=== PATIENT | female | born 1945 | race American Indian/Alaskan Native ===

== ENCOUNTER 2016-08-01 10:20 | Outpatient (CLI) | payer MEDICARE, OTHER | END 2016-08-01 10:21 | disposition home or self-care (01) | DX: Z12.31 Encounter for screening mammogram for malignant neoplasm of breast (principal) ==

== ENCOUNTER 2017-08-01 10:30 | Outpatient (CLI) | payer MEDICARE, OTHER ==
--- NOTE | 2017-08-02 13:52 | Mammography Report ---
DATE OF SERVICE: 08/01/2017 DIGITAL BILATERAL SCREENING MAMMOGRAM: 08/01/2017 COMPARISON: Mammogram 08/01/2016. INDICATION: Screening mammography. TECHNIQUE: Bilateral MLO and CC breast views. FINDINGS: There are scattered fibroglandular densities. No dominant mass architectural distortion or concerning cluster of microcalcifications seen. IMPRESSION: BIRADS CATEGORY 1-NEGATIVE. RECOMMENDATION: ANNUAL SCREENING MAMMOGRAM. STANDARD QUALIFYING STATEMENTS: 1. This examination was reviewed with the aid of Computer-Aided Detection (CAD) . 2. A negative or benign imaging report should not delay biopsy if clinically suspicious findings are present. Consider surgical consultation if warranted. More than 5% of cancers are not identified by imaging. 3. Dense breasts may obscure an underlying neoplasm. TD: 08/02/2017 14:50 JACI
== END 2017-08-01 10:31 | disposition home or self-care (01) ==
LOC: DI.S 10:30
PROVIDERS: ATTEND Internal Medicine
DX: Z12.31 Encounter for screening mammogram for malignant neoplasm of breast (principal)
CPT/HCPCS: 77067

== ENCOUNTER 2017-08-05 09:54 | Outpatient (CLI) | payer MEDICARE, OTHER ==
--- NOTE | 2017-08-05 13:19 | CARDIAC PROCEDURE NOTE ---
DATE OF SERVICE: 08/05/2017 Physician: Shyann Archer MD DATE OF PROCEDURE: 08/05/2017 PROCEDURE: Exercise Cardiolite test. FINDINGS: HEART RATE RESPONSE: Resting 91 to maximum 181, which was beyond the target of 126. BLOOD PRESSURE RESPONSE: 136/64 resting to maximum 170/64. ST SEGMENT RESPONSE: No significant ST segment elevations or depressions, arrhythmias, PVCs detected. SYMPTOMS: No chest discomfort. EXAM CHANGES: None. REASON FOR STOPPING TEST: Dyspnea and patient had completed the required 1 minute exercise time after Cardiolite injections. IMPRESSION: No symptoms, no significant EKG changes. CONCLUSIONS: Await imaging studies. TD: 08/05/2017 14:18
--- NOTE | 2017-08-05 15:32 | Nuclear Medicine Report ---
EXAM: SINGLE-ISOTOPE EXERCISE STRESS TEST. SINGLE-ISOTOPE AND ONE-DAY REST/STRESS MYOCARDIAL PERFUSION SCAN S WITH TOMOGRAPHIC IMAGING, QUANTITATIVE ANALYSIS, WALL MOTION ANALYSIS AND CALCULATION OF EJECTION F RACTION. EXAM DATE: 08/05/2017 02:54 PM. CLINICAL HISTORY: DYSPNEA, CHEST PAIN. COMPARISON: None. TECHNIQUE: A rest myocardial perfusion scan was done with tomography after the intravenous administration of 11. 3 mCi Tc-99m sestamibi. After an appropriate delay, a treadmill exercise stress was performed according to department orlyo l. The patient exercised for 7 minutes and 0 seconds. The maximum heart rate was 181 bpm, which was 1 21% of the maximum predicted heart rate of 149 bpm. At approximately peak heart rate, 41.8 mCi of Tc- 99m sestamibi was injected for stress myocardial perfusion scan. Motion correction was applied when a ppropriate. Gated tomographic images were obtained for wall motion analysis and computation of left ventricular e jection fraction. FINDINGS: Stress perfusion images demonstrate no convincing fixed or reversible perfusion defects. No other convincing perfusion abnormalities. No convincing evidence of transient ischemic dilatation. Wall motion analysis demonstrates no focal wall motion abnormalities The left ventricular end-diastolic volume is 69 cc. The left ventricular end-systolic volume is 17 cc . The left ventricular ejection fraction is calculated to be 75%. IMPRESSION: 1. No scintigraphic findings to indicate myocardial ischemia. Negative for infarct. 2. Normal left ventricular ejection fraction of 75%. 3. Normal segmental and global wall motion. 4. Normal left ventricular cavity size, no change with stress. [facility] Referring Provider Line: [phone] SITE ID: [id number]
[2017-08-07 13:46] VITALS: BP 136/64
== END 2017-08-05 09:55 | disposition home or self-care (01) ==
LOC: DI 09:54
PROVIDERS: ATTEND Internal Medicine
DX: R06.00 Dyspnea, unspecified (principal); R07.9 Chest pain, unspecified
CPT/HCPCS: 78452; 93017; A9500

== ENCOUNTER 2018-08-22 10:17 | Outpatient (CLI) | payer MEDICARE, OTHER ==
--- NOTE | 2018-08-22 13:48 | XRAY Report ---
Reason: COUGH Procedure Date: 08/22/2018 Accession Number: [id number] / [id number] Procedure: XR - Chest 2 View X-Ray CPT Code: 96193 FULL RESULT: EXAM: CHEST RADIOGRAPHY EXAM DATE: 08/22/2018 10:29 AM. CLINICAL HISTORY: Cough. COMPARISON: 09/06/2014 2:46 PM. TECHNIQUE: 2 views. FINDINGS: Lungs/Pleura: No focal opacities evident. No pleural effusion. No pneumothorax. Normal volumes. Mediastinum: Redemonstration of calcifications of the aortic arch. Normal cardiac silhouette for size. Other: None. IMPRESSION: No acute cardiopulmonary abnormality. [facility]
== END 2018-08-22 10:18 | disposition home or self-care (01) ==
LOC: DI 10:17
PROVIDERS: ATTEND Internal Medicine
DX: R05 Cough (principal)
CPT/HCPCS: 71046

== ENCOUNTER 2018-09-15 10:34 | Emergency (ER) | payer MEDICARE, OTHER ==
[2018-09-15 11:45] LABS: BASOPHILS % (AUTO) 0.2 %; EOSINOPHILS # (AUTO) 0.1 10^3/uL (0.0-0.7); EOSINOPHILS % (AUTO) 0.7 %; HGB - HEMOGLOBIN 12.1 g/dL (12.0-16.0); LYMPHOCYTES # (AUTO) 2.6 10^3/uL (1.5-3.5); LYMPHOCYTES % (AUTO) 26.1 %; MEAN CORPUSCULAR HEMOGLOBIN 30.1 pg (27.0-31.0); MEAN CORPUSCULAR HGB CONC 33.8 g/dL (32.0-36.0); MEAN CORPUSCULAR VOLUME 89.2 fL (81.0-99.0); MEAN PLATELET VOLUME 7.9 fL (7.9-10.8); MONOCYTES # (AUTO) 0.7 10^3/uL (0.0-1.0); MONOCYTES % (AUTO) 6.9 %; NEUTROPHILS # (AUTO) 6.6 10^3/uL (1.5-6.6); NEUTROPHILS % (AUTO) 66.1 %; PLT - PLATELET COUNT 238 10^3/uL (130-450); RED BLOOD COUNT 4.02 10^6/uL (4.20-5.40); RED CELL DISTRIBUTION WIDTH 12.7 % (12.0-15.0); WHITE BLOOD COUNT 9.9 x10^3/uL (4.8-10.8)
[2018-09-15 11:54] LABS: ALBUMIN 4.1 g/dL (3.2-5.5); ALBUMIN/GLOBULIN RATIO 1.2 (1.0-2.2); BILIRUBIN,TOTAL 0.4 mg/dL (0.2-1.0); CALCIUM 9.3 mg/dL (8.5-10.3); CREATININE 1.1 mg/dL (0.4-1.0); TOTAL PROTEIN 7.4 g/dL (6.7-8.2)
[2018-09-15 12:04] LABS: BILIRUBIN,URINE NEGATIVE (NEGATIVE); GLUCOSE, URINE (UA) NEGATIVE (NEGATIVE); KETONES,URINE (UA) NEGATIVE (NEGATIVE); LEUKOCYTE ESTERASE, URINE NEGATIVE (NEGATIVE); NITRITE,URINE NEGATIVE (NEGATIVE); OCCULT BLOOD,URINE NEGATIVE (NEGATIVE); PROTEIN,URINE NEGATIVE (NEGATIVE); UROBILINOGEN,URINE 0.2 (NORMAL) E.U./dL (NORMAL)
[2018-09-15 12:08] LABS: CLARITY,URINE CLEAR (CLEAR)
[2018-09-15] MEDS ORDERED: ONDANSETRON 4 MG/2 ML VIAL IVP STA (12:33)
[2018-09-15] MEDS ORDERED: MECLIZINE 12.5 MG TABLET PO STA (12:33)
--- NOTE | 2018-09-15 12:37 | ED Physician Documentation ---
PD HPI FOCAL NEURO - Stated complaint Stated Complaint: DIZZY/NAUSEA - Chief complaint Chief Complaint: Heent - History obtained from History obtained from: Patient - History of Present Illness Timing - onset: Other (Over the last 2 days she has had waxing and waning vertigo feeling like the room is spinning especially to the right. It generally happens at night. She does not know if it is related to turning over or turning her head, as she is been woken up by it. There is no associated headache, weakness, numbness, tingling. She does have a upper respiratory infection is being treated for bronchitis and is on steroids. She has had vertigo before related to an ear perforation but that was decades ago. At this point she does not have not vertigo but she feels a little car sick and nauseous. 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 - Present Medications Home Medications: Ambulatory Orders Medication Instructions Recorded Confirmed Bupropion HCl [Wellbutrin] 300 mg PO DAILY 01/01/13 08/14/17 Omeprazole [Prilosec] 20 mg PO BID 01/01/13 08/14/17 Albuterol Sulfate [Albuterol 1 inh INH DAILY 09/06/14 08/14/17 Sulfate Hfa] Pravastatin Sodium 40 mg PO DAILY 09/06/14 08/14/17 LORazepam [Lorazepam] 1 mg PO DAILY PRN 06/10/15 08/14/17 Losartan [Cozaar] 25 mg PO DAILY 05/29/16 08/14/17 [place] 0.5 mg PO BID 05/30/16 08/14/17 Ipratropium/Albuterol [Duoneb] 1 ea INH TID PRN 08/14/17 08/14/17 Azithromycin [Zithromax] 1 tab PO DAILY #6 tablet 09/15/18 Meclizine HCl 25 mg PO Q6H PRN #20 tab.chew 09/15/18 Ondansetron Odt [Zofran] 4 mg TL Q6H PRN #10 tablet 09/15/18 - Allergies Allergies/Adverse Reactions: Allergies Allergy/AdvReac Type Severity Reaction Status Date / Time aspirin AdvReac Unknown Respiratory Verified 09/15/18 11:03 codeine [Codeine] AdvReac Unknown Headache Verified 09/15/18 11:03 Penicillins AdvReac Unknown Rash Verified 09/15/18 11:03 msg AdvReac Unknown Respiratory Uncoded 09/15/18 11:03 - Social History Does the pt smoke?: Yes Smoking Status: Current every day smoker Does the pt drink ETOH?: No Does the pt have substance abuse?: No - Immunizations Immunizations are current?: Yes - POLST Patient has POLST: No PD ED PE NORMAL - Vitals Vital signs reviewed: Yes - General General: Alert and oriented X 3, No acute distress - HEENT HEENT: PERRL, EOMI (Mild nystagmus with rightward gaze), Ears normal (Retracted right TM without otitis) - Neck Neck: Supple, no meningeal sign, No bony TTP - Cardiac Cardiac: RRR, No murmur - Abdomen Abdomen: Non tender - Neuro Neuro: Alert and oriented X 3, Normal speech - Psych Psych: Normal mood, Normal affect NIHSS - Time Time: 12:30 - Level of Consciousness Level of consciousness: (0) Alert, Keenly responsive LOC Questions: (0) Answers both Q's correct - Gaze Best Gaze: (0) Normal - Visual Visual: (0) No loss - Facial Palsy Facial Palsy: (0) Normal, symmetrical movement - Motor Arms (both separate) Motor Arm (right): (0) No drift Motor Arm (left): (0) No drift - Motor Legs (both separate) Motor Leg (right): (0) No drift Motor Leg (left): (0) No drift - Limb Ataxia Limb Ataxia: (0) Absent - Sensory Sensory: (0) Normal - Best Language Best Language: (0) No aphasia - Dysarthria Dysarthria: (0) Normal - Extinction and Inattention (formally neg Extinction and inattention: (0) No abnormality Results - Vitals Vitals: Vital Signs - 24 hr 09/15/18 09/15/18 10:58 12:03 Temperature 36.7 C Heart Rate 73 Respiratory 20 19 Rate Blood Pressure 143/80 H O2 Saturation 99 Oxygen O2 Source Room air - Labs Labs: Laboratory Tests 09/15/18 09/15/18 09/15/18 11:36 11:36 12:00 WBC 9.9 RBC 4.02 L Hgb 12.1 Hct 35.8 L MCV 89.2 MCH 30.1 MCHC 33.8 RDW 12.7 Plt Count 238 MPV 7.9 Neut # (Auto) 6.6 Lymph # (Auto) 2.6 [place] # (Auto) 0.7 Eos # (Auto) 0.1 Baso # (Auto) 0.0 Absolute Nucleated RBC 0.00 Nucleated RBC % 0.0 Sodium 136 Potassium 3.9 Chloride 100 L Carbon Dioxide 25 Anion Gap 11.0 BUN 20 Creatinine 1.1 H Estimated GFR (MDRD) 49 L Glucose 112 H Calcium 9.3 Total Bilirubin 0.4 AST 20 ALT 19 Alkaline Phosphatase 56 Total Protein 7.4 Albumin 4.1 Globulin 3.3 Albumin/Globulin Ratio 1.2 Lipase 56 H Urine Color YELLOW Urine Clarity CLEAR Urine pH 6.0 Ur Specific [place] 1.010 Urine Protein NEGATIVE Urine Glucose (UA) NEGATIVE Urine Ketones NEGATIVE Urine Occult Blood NEGATIVE Urine Nitrite NEGATIVE Urine Bilirubin NEGATIVE Urine Urobilinogen 0.2 (NORMAL) Ur Leukocyte Esterase NEGATIVE Ur Microscopic Review NOT INDICATED Urine Culture Comments NOT INDICATED - Rads (name of study) CTA Head Radiology: EMP read contemporaneously (Sinusits but no evidence of intracranial disease or vascular disease.) PD MEDICAL DECISION MAKING - ED course ED course: 72-year-old woman with vertigo which sounds mostly peripheral. MRI considered but she has a bladder stimulator in place, CT of the head was done without pertinent findings and after the administration of meclizine and Zofran she was symptom-free. Treated with Zithromax noting penicillin allergy. Departure - Departure Disposition: 01 Home, Self Care Clinical Impression: Vertigo Sinusitis Qualifiers: Sinusitis location: maxillary Chronicity: acute Recurrence: non-recurrent Qualified Code(s): J01.00 - Acute maxillary sinusitis, unspecified Condition: Good Record reviewed to determine appropriate education?: Yes Instructions: ED Vertigo Unspecified, ED Sinusitis Abx Tx Prescriptions: Azithromycin [Zithromax] 1 tab PO DAILY #6 tablet Meclizine HCl 25 mg PO Q6H PRN #20 tab.chew PRN Reason: Dizziness Ondansetron Odt [Zofran] 4 mg TL Q6H PRN #10 tablet PRN Reason: Nausea / Vomiting Comments: Call your doctor to arrange a follow-up appointment, make the next available appointment. In the interim, return anytime if worse or if new symptoms develop.
[2018-09-15] MEDS ORDERED: IOVERSOL 320 100 ML VIAL IVP ONE ×2 (12:43→15:19)
--- NOTE | 2018-09-15 13:34 | CT Report ---
Reason: L sided facial droop Procedure Date: 09/15/2018 Accession Number: [id number] / [id number] Procedure: CT - ANGIO HEAD W CPT Code: FULL RESULT: EXAM: CT ANGIOGRAM HEAD. CT SCAN HEAD WITHOUT AND WITH CONTRAST. EXAM DATE:09/15/2018 01:07 PM. CLINICAL HISTORY: 72-year-old female. L sided facial droop. COMPARISON:None. TECHNIQUE: Routine axial helical CTA imaging was performed from the aortic arch through the [place] of [place]. Routine axial CT imaging of the head was performed prior to and following contrast administration. Reconstructions: Routine multiplanar 3D MIP reconstructions. IV contrast: 80 cc Optiray 320. NASCET Criteria are used for stenosis measurements. In accordance with CT protocol optimization, one or more of the following dose reduction techniques were utilized for this exam: automated exposure control, adjustment of mA and/or KV based on patient size, or use of iterative reconstructive technique. FINDINGS: CT SCAN HEAD: Parenchyma: No intraparenchymal hemorrhage. No evidence of mass, midline shift, or CT findings of acute infarction. Ferrer-white differentiation is distinct. Extraaxial Spaces: Normal for age. No subdural or epidural collections identified. Ventricles: Normal in size and position. Sinuses and Orbits: Status post bilateral lens replacement surgery. Moderate mucosal thickening final maxillary sinuses. Imaged paranasal sinuses, orbits, and mastoids show no significant abnormality. Bones: No evidence of fracture or calvarial defect. CTA head: Mild atherosclerosis right carotid siphon, no hemodynamically significant stenosis. Mild atherosclerosis left carotid siphon, no hemodynamically significant stenosis. The visualized vertebral arteries are unremarkable. The basilar artery is unremarkable. The left SILVERER is unremarkable. The right SILVERER is unremarkable. The right MCA is unremarkable. The ACAs bilaterally are unremarkable. The left MCA is unremarkable. The dural venous sinuses are patent. IMPRESSION: 1. No evidence of acute intracranial abnormality on the noncontrast CT head. Specifically, no evidence of acute infarct, intracranial hemorrhage, mass effect, midline shift, or hydrocephalus. 2. No abnormal enhancement on the postcontrast CT head. 3. No CTA evidence of hemodynamically significant stenosis, large vessel occlusion, acute dissection, aneurysm, or vascular malformation within intracranial arteries. 4. Moderate mucosal thickening final maxillary sinuses. Correlate clinically for sinusitis. [facility]
[2018-09-15 13:52] VITALS: BP 139/81
== END 2018-09-15 13:51 | disposition home or self-care (01) ==
LOC: ED 10:34
DX: R42 Dizziness and giddiness (principal); J01.00 Acute maxillary sinusitis, unspecified; E78.00 Pure hypercholesterolemia, unspecified; F17.200 Nicotine dependence, unspecified, uncomplicated
CPT/HCPCS: 36415; 70496; 80053; 81003; 83690; 85025; 96374; 99283; A9270; Q9967; 81001; 87086

== ENCOUNTER 2019-04-01 11:28 | Emergency (ER) | payer MEDICARE, OTHER ==
--- NOTE | 2019-04-01 14:57 | ED Physician Documentation ---
PD HPI BACK PAIN - Stated complaint Stated Complaint: BACK PX - Chief complaint Chief Complaint: Back Pain - History obtained from History obtained from: Patient - History of Present Illness Timing - onset: How many days ago (6) Timing - duration: Days (6) Timing - details: Gradual onset, Still present Location: Lower, Right Quality: Pain, Spasm Associated symptoms: No: Fever, Weakness, Numbness, Incontinent of urine Improves with: No: Rest, Meds (taking tylenol and ibuprofen with little improvement. Saw Chiropractor who suggested she get muscle relaxants due to stiffness.) Worsened by: Movement Contributing factors: Twisting (has had ongoing back problems at times and felt pain worse last week without notable injury. Has been stiff and hurting. No sciatic symptoms.). No: Lifting, Trauma Similar symptoms before: Diagnosis (back arthritis and spasms) Recently seen: Clinic (chiropractor today) Review of Systems Constitutional: denies: Fever, Chills, Myalgias Nose: denies: Rhinorrhea / runny nose, Congestion Throat: denies: Sore throat Respiratory: denies: Cough GI: denies: Abdominal Pain, Nausea, Vomiting : denies: Incontinent Neurologic: denies: Focal weakness, Numbness PD PAST MEDICAL HISTORY - Past Medical History Past Medical History: Yes Cardiovascular: High cholesterol Respiratory: Asthma Psych: Depression Musculoskeletal: Chronic back pain (intermittently) - Past Surgical History Past Surgical History: Yes General: 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: Hysterectomy - Present Medications Home Medications: Ambulatory Orders Medication Instructions Recorded Confirmed Bupropion HCl [Wellbutrin] 300 mg PO DAILY 01/01/13 08/14/17 Omeprazole [Prilosec] 20 mg PO BID 01/01/13 08/14/17 Albuterol Sulfate [Albuterol 1 inh INH DAILY 09/06/14 08/14/17 Sulfate Hfa] Pravastatin Sodium 40 mg PO DAILY 09/06/14 08/14/17 LORazepam [Lorazepam] 1 mg PO DAILY PRN 06/10/15 08/14/17 Losartan [Cozaar] 25 mg PO DAILY 05/29/16 08/14/17 [place] 0.5 mg PO BID 05/30/16 08/14/17 Ipratropium/Albuterol [Duoneb] 1 ea INH TID PRN 08/14/17 08/14/17 Azithromycin [Zithromax] 1 tab PO DAILY #6 tablet 09/15/18 Meclizine HCl 25 mg PO Q6H PRN #20 tab.chew 09/15/18 Ondansetron Odt [Zofran] 4 mg TL Q6H PRN #10 tablet 09/15/18 Hydrocodone/Acetaminophen 1 each PO Q6H PRN #15 tablet 04/01/19 [Hydrocodon-Acetaminophen 5-325] Tizanidine HCl 4 mg PO TID PRN #25 capsule 04/01/19 dexAMETHasone [Decadron] 4 mg PO DAILY #7 tablet 04/01/19 - Allergies Allergies/Adverse Reactions: Allergies Allergy/AdvReac Type Severity Reaction Status Date / Time aspirin AdvReac Unknown Respiratory Verified 04/01/19 11:41 codeine [Codeine] AdvReac Unknown Headache Verified 04/01/19 11:41 Penicillins AdvReac Unknown Rash Verified 04/01/19 11:41 msg AdvReac Unknown Respiratory Uncoded 04/01/19 11:41 - Social History Does the pt smoke?: Yes Smoking Status: Current every day smoker Does the pt drink ETOH?: No Does the pt have substance abuse?: No - Immunizations Immunizations are current?: Yes - POLST Patient has POLST: No PD ED PE NORMAL - Vitals Vital signs reviewed: Yes - General General: Alert and oriented X 3, Well developed/nourished, Other (appears uncomfortable. Guarding ROM of the lower back. ) - Neck Neck: Supple, no meningeal sign, No bony TTP, No adenopathy - Cardiac Cardiac: RRR, No murmur - Respiratory Respiratory: Clear bilaterally - Abdomen Abdomen: Soft, Non tender - Back Back: No CVA TTP, Other (tender in thoracolumbar and lumbar area, mostly mid back and to right of midline in muscles. No rash nor sores. ) - Derm Derm: Normal color, Warm and dry - Extremities Extremities: Normal ROM s pain, No edema, No calf tenderness / cord - Neuro Neuro: Alert and oriented X 3, No motor deficit, No sensory deficit, Other (normal knee reflexes) Results - Vitals Vitals: Vital Signs - 24 hr 04/01/19 04/01/19 04/01/19 11:37 15:18 15:37 Temperature 36.4 C L Heart Rate 76 87 87 Respiratory 18 18 12 Rate Blood Pressure 158/63 H 149/93 H 149/90 H O2 Saturation 97 97 99 Oxygen O2 Source Room air PD MEDICAL DECISION MAKING - ED course Complexity details: considered differential (no red flags per se (age would be consideration) to suggest need for imaging. Has history of back pains. Can treat with meds. ), d/w patient Departure - Departure Disposition: Home, Self Care Clinical Impression: Low back pain Qualifiers: Chronicity: acute Back pain laterality: bilateral Sciatica presence: without sciatica Qualified Code(s): M54.5 - Low back pain Condition: Stable Record reviewed to determine appropriate education?: Yes Instructions: ED Low Back Pain Injury Follow-Up: Shyann Archer MD [Primary Care Provider] - Prescriptions: dexAMETHasone [Decadron] 4 mg PO DAILY #7 tablet Hydrocodone/Acetaminophen [Hydrocodon-Acetaminophen 5-325] 1 each PO Q6H PRN #15 tablet PRN Reason: pain Tizanidine HCl 4 mg PO TID PRN #25 capsule PRN Reason: Spasms Comments: Heat and gentle stretching for the low back. Follow-up with chiropractic or massage as desired. Use some anti-inflammatory Decadron daily for a week. Tizanidine muscle relaxant 3 times a day as needed. Tylenol or add hydrocodone if needed for pain. Recheck if not improving over the next several days to week Discharge Date/Time: 04/01/19 15:38
[2019-04-01] MEDS ORDERED: CHERRY SYRUP 10 ML UDC PO ONE (15:06)
[2019-04-01] MEDS ORDERED: HYDROcod/ACETAM 5/325 MG TABLET PO STA (15:06)
[2019-04-01] MEDS ORDERED: METHOCARBAMOL 500 MG TABLET PO STA (15:06)
[2019-04-01] MEDS ORDERED: DEXAMETHASONE 10 MG/ML VIAL PO STA (15:06)
[2019-04-01 15:38] VITALS: BP 149/90
== END 2019-04-01 15:38 | disposition home or self-care (01) ==
LOC: ED 11:28
DX: M54.5 Low back pain (principal); F17.200 Nicotine dependence, unspecified, uncomplicated
CPT/HCPCS: 99283; 99284; A9270

== ENCOUNTER 2019-05-22 08:22 | Outpatient (CLI) | payer MEDICARE, OTHER ==
--- NOTE | 2019-05-23 22:54 | XRAY Report ---
Reason: M54.5MM54.9 Procedure Date: 05/22/2019 Accession Number: [id number] / [id number] Procedure: XRS - Lumbar Spine 2 View CPT Code: FULL RESULT: EXAM: LUMBOSACRAL SPINE RADIOGRAPHY EXAM DATE: 05/22/2019 08:48 AM. CLINICAL HISTORY: Chronic low back pain. COMPARISONS: None. TECHNIQUE: 3 views. FINDINGS: Alignment: Normal. No spondylolisthesis or scoliosis. Bones: Five [id number] lumbar vertebral bodies are present. No fractures or bone lesions. Disks: There are degenerative changes of the disks T12-L5. There is disk space narrowing and small marginal osteophytes. There is grade 1 spondylolisthesis of L4 on L5 secondary to severe degeneration at the facets. Facets: The L4-L5 and L5-S1 facets are degenerated. Sacroiliac Joints: Unremarkable. Soft Tissues: There is an electrode seen overlying the left side of the sacral ala. IMPRESSION: 1. Degenerative changes of the lumbar spine. 2. Grade 1 spondylolisthesis L4 on L5 secondary to degeneration of the facets. [facility]
== END 2019-05-22 08:23 | disposition home or self-care (01) ==
LOC: DI.S 08:22
PROVIDERS: ATTEND Internal Medicine
DX: M43.16 Spondylolisthesis, lumbar region (principal); M51.36 Other intervertebral disc degeneration, lumbar region
CPT/HCPCS: 72100

== ENCOUNTER 2019-12-31 09:17 | Outpatient (CLI) | payer MEDICARE, OTHER ==
[~2019-12-31 09:17] MED LIST: ALBUTEROL 1 PUFF INH SCH
== END 2019-12-31 09:18 | disposition home or self-care (01) ==
LOC: RT 09:17
PROVIDERS: ATTEND Internal Medicine
DX: J44.9 Chronic obstructive pulmonary disease, unspecified (principal)
CPT/HCPCS: 94060

== ENCOUNTER 2020-01-26 12:53 | Outpatient (CLI) | payer MEDICARE, OTHER ==
[2020-01-26 13:24] LABS: BASOPHILS # (AUTO) 0.1 10^3/uL (0.0-0.1); BASOPHILS % (AUTO) 0.6 %; EOSINOPHILS # (AUTO) 0.4 10^3/uL (0.0-0.7); EOSINOPHILS % (AUTO) 4.4 %; HGB - HEMOGLOBIN 11.6 g/dL (12.0-16.0); LYMPHOCYTES # (AUTO) 2.6 10^3/uL (1.5-3.5); LYMPHOCYTES % (AUTO) 30.7 %; MEAN CORPUSCULAR HEMOGLOBIN 31.2 pg (27.0-31.0); MEAN CORPUSCULAR HGB CONC 32.8 g/dL (32.0-36.0); MEAN CORPUSCULAR VOLUME 95.2 fL (81.0-99.0); MEAN PLATELET VOLUME 9.4 fL (7.9-10.8); MONOCYTES # (AUTO) 0.7 10^3/uL (0.0-1.0); MONOCYTES % (AUTO) 7.8 %; NEUTROPHILS # (AUTO) 4.8 10^3/uL (1.5-6.6); NEUTROPHILS % (AUTO) 56.2 %; PLT - PLATELET COUNT 230 10^3/uL (130-450); RED BLOOD COUNT 3.72 10^6/uL (4.20-5.40); RED CELL DISTRIBUTION WIDTH 12.3 % (12.0-15.0); WHITE BLOOD COUNT 8.6 x10^3/uL (4.8-10.8)
[2020-01-26 13:33] LABS: CALCIUM 9.2 mg/dL (8.5-10.3); CREATININE 1.3 mg/dL (0.4-1.0)
== END 2020-01-26 12:54 | disposition home or self-care (01) ==
LOC: LAB 12:53
PROVIDERS: ATTEND Orthopaedic Surgery
DX: Z01.818 Encounter for other preprocedural examination (principal); M48.061 Spinal stenosis, lumbar region without neurogenic claudication
CPT/HCPCS: 36415; 80048; 85025

== ENCOUNTER 2020-02-12 09:42 | Outpatient (CLI) | payer MEDICARE, OTHER | END 2020-02-12 09:43 | disposition EMS.NT | LOC: EMS 09:42 | PROVIDERS: ATTEND Surgery | DX: R06.02 Shortness of breath (principal) ==

== ENCOUNTER 2021-02-22 09:04 | Outpatient (CLI) | payer MEDICARE, OTHER ==
[2021-02-22 09:59] VITALS: BP 144/67
--- NOTE | 2021-02-22 09:59 | SLEEP CARE CONSULTATION ---
Information from patient questionnaire entered by Sherri Jansen. I have reviewed and concur with the information entered by Sherri Jansen. This document represents the service I personally performed and the decisions made by me, Shayy Villalpando ARNP. History of Present Illness Service Date and Time: 02/22/2021 0904 Reason for Visit: New patient Chief Complaint: reports: Unrefreshed sleep, Snoring, Excessive daytime sleepiness, Observed pauses in breathing, Fatigue, Frequent awakenings at night, Other (Can't lay still) Date of Onset: 10 years Usual bedtime: 10:30 Time it takes to fall asleep: Hours Snores at night: Yes Observed to quit breathing while asleep: Yes Sleeps alone due to snoring: No Number of times waking at night: 3 times + Reasons for waking at night: reports: Snoring (Unknown reason; she has woke up feeling startled and needing air), Gasping for air, Pain, Bathroom, Other (Unknown reason) Toss, Turn, or Twitch while sleeping: Yes Recalls having dreams: No (rarely remembers them) Usually gets out of bed at: 7:30 to 8:30 Feels refreshed in the morning: No Morning headache: No Sleepy or fatigued during the day: Yes Ever fallen asleep while driving: No (no drowsy driving) Takes day naps: Yes (1-2 times a week for about 1 hour) Dreams during day naps: No Prior sleep studies: Yes [facility] and Where: [facility] Additional HPI information: I had the pleasure of seeing MESSI MONTERROSO today regarding the possibility of her having a sleep disorder. Her current complaints are unrefreshed sleep, excessive daytime sleepiness, observed pauses in breathing, fatigue, frequent night awakenings and "can't lay still". She states she has not been sleeping well for a long time. She will lay in bed and not be able to go to sleep. She will get up after 20-30 minutes and try again a little later. She is not feeling rested in the morning. She was given Ambien by her PCP to help her sleep but she does not really want to take them. She has a history of alcoholism and does not want to take anything addictive. She has only used 3 over the last week. She has tried OTC Melatonin, CBD and other aids. Nothing is really helping her go to sleep. She can stay asleep, if there are no interruptions after falling asleep. She normally gets up between 7-7:30 AM, sometimes 8 AM. She had a previous study about 6 years ago and was placed on a CPAP. She only used it for a couple of months. She had some issues with claustrophobia with the mask on and getting a good mask fit. She feels things are getting worse. She feels the constant CPAP pressure was not comfortable and that she would have done better on a BiPAP. 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 Patient is and lives in [place] . Have you smoked in the past 12 months: Yes Cigarettes per day (20/pack): 5 Years of smokin Smoking Pack Years: 10.0 Alcohol use: No Alcohol amount and frequency: Quit 02/01/77 Caffeine use: Yes Caffeine amount and frequency: Rarely - 2 a month maybe Family History Family history of sleep disordered breathing: Yes Family Hx Sleep Apnea: Mother: Snoring, Sibling: Snoring, Sleep apnea - Treated Allergies and Home Medications Drug allergies reviewed: Yes (aspirin, penicillin, codeine, MSG, ibuprofen) Home medication list reviewed: Yes Allergy and home medication list: Albuterol inhaler DuoNeb nebulizer Prevastatin Omeprazole Bupropion Losartan Tina Orotate, OTC mineral supplement Review of Systems Weight gain over past 5 years: 25 Weight loss over past 5 years: 22 Respiratory: reports: shortness of breath, wheeze, sputum production Urinary: reports: incontinence, frequency, urgency Psychiatric: reports: anxiety, depression Ear/Nose/Throat: reports: nasal congestion, sinus problems, wisdom teeth removed. denies: tonsillectomy Endocrine: reports: sluggishness (tired) Musculoskeletal: reports: joint pain (stiffness in hip) Immunologic: reports: sneezing (runny nose), allergies to food or environment, other (Back surgery 02/03/20) Physical Exam Blood Pressure: 144/67 Cuff size: wrist Heart Rate: 68 O2 Saturation: 94 Height: 5 ft 2 in Weight: 180 lb Body Mass Index: 32.9 BMI Classification: Obese Neck circumference: 15 (inches) Nostrils: patent to airflow Mouth and throat: narrow oropharynx Soft palate: long Hard palate: normal Uvula: long Uvula visualization: 50% Mallampati Class II Tongue: normal in size Tonsils: small Neck: normal w/o lymphadenopathy or thyromegaly Heart: regular rate and rhythm Lungs: wheeze Impression and Plan 1. Suspected Obstructive Sleep Apnea-Hypopnea Syndrome, as previously diagnosed and as suggested by a history of loud and irregular snoring, observed cessation of breath while asleep, gasping or choking in sleep, frequent awakening during the night, unrefreshed sleep, cognitive impairment, and excessive daytime sleepiness. Narrow oropharynx and obesity are common predisposing factors for obstructive sleep apnea-hypopnea syndrome. I recommend proceeding to polysomnography to confirm the diagnosis and to assess severity. If the patient has significant sleep disordered breathing, a manual CPAP titration study will also be performed to find the optimal treatment pressure. I informed the patient of what the sleep studies involve and after some discussion, obtained agreement to proceed. The pathophysiology of obstructive sleep apnea-hypopnea syndrome was discussed with the patient and health risks of cardiovascular and cerebrovascular disease if not treated. AASM brochure for obstructive sleep apnea-hypopnea syndrome given and reviewed. Risks of drowsy driving discussed in detail and patient advised to avoid long distance driving and to pullboat engineer at the first sign of drowsiness. Patient agreed to plan. * Schedule polysomnography +- manual CPAP titration study and return in 1-2 wee ks after the study to discuss result and initiate therapy. * Avoid long distance driving or driving when feeling sleepy. * Avoid alcohol, sedative and muscle relaxant around bedtime. * Attempt to lose weight. * Review instructions provided by trained office staff on how to prepare for the sleep study. * Return for follow-up after sleep study completed. Counseling Topics: Weight loss health impact Visit Type: In Office Time Spent with Patient (minutes): 32 Provider Statement: I spent 100% of the Face to Face Visit with the patient with greater than 50% spent counseling the patient and coordination of care.
== END 2021-02-22 09:05 | disposition home or self-care (01) ==
LOC: SC 09:04
PROVIDERS: ATTEND Nurse Practitioner Family
DX: G47.33 Obstructive sleep apnea (adult) (pediatric) (principal); F17.210 Nicotine dependence, cigarettes, uncomplicated; E66.9 Obesity, unspecified; Z68.32 Body mass index [BMI] 32.0-32.9, adult
CPT/HCPCS: 99203; G0463; 99212

== ENCOUNTER 2021-03-01 09:48 | Outpatient (CLI) | payer MEDICARE, OTHER | END 2021-03-01 09:49 | disposition home or self-care (01) | LOC: SC 09:48 | PROVIDERS: ATTEND Nurse Practitioner Family | DX: G47.10 Hypersomnia, unspecified (principal) | CPT/HCPCS: 95806 ==

== ENCOUNTER 2021-04-04 09:01 | Outpatient (CLI) | payer MEDICARE, OTHER | END 2021-04-04 09:02 | disposition home or self-care (01) | LOC: SC 09:01 | PROVIDERS: ATTEND Nurse Practitioner Family | DX: G47.33 Obstructive sleep apnea (adult) (pediatric) (principal); R09.02 Hypoxemia | CPT/HCPCS: G0399 ×2; 95806 ==

== ENCOUNTER 2021-04-25 09:39 | Outpatient (CLI) | payer MEDICARE, OTHER ==
--- NOTE | 2021-04-25 10:13 | SLEEP CARE CONSULTATION ---
Information from patient questionnaire entered by Jessica Teresa. I have reviewed and concur with the information entered by Jessica Teresa. This document represents the service I personally performed and the decisions made by , Shayy Villalpando ARNP. History of Present Illness Service Date and Time: 04/25/2021 09 Initial [place] Sleepiness Scale score: 12 (in 2020) Current [place] Sleepiness Scale score: 9 Additional HPI information: MESSI MONTERROSO returns for follow up and results of the recently performed home sleep study. I explained the pathophysiology behind obstructive sleep apnea. We then spent quite a bit of time discussing different treatment options. For mild obstructive sleep apnea, surgery and oral appliance are alternatives to nasal CPAP therapy but in moderate or severe cases, nasal CPAP is the most effective and reliable treatment. Because apnea is primarily in supine position, then positional management therapy could be effective. Methods discussed such as positioning with pillows, using a T-shirt with tennis balls in the back, and shown commercial products that have a pillow format on back to prevent supine sleep. I reviewed the impact of weight changes on sleep apnea and strongly recommended losing weight. AASM patient education Non Pap treatment pamphlet reviewed and given to patient. Patient does not drink alcohol. Patient was cautioned about risks of drowsy driving until sleepiness symptoms resolve. Sleep Study - Results Type of Sleep Study: Home sleep study Prior sleep studies: Yes Year and Where: 2020 [facility], [address] [place] [address] [facility] Pol[facility]Home Sleep Study results: Physician Impression: The quality of the study is fair due to partial loss of airflow signal.. The length of the study is adequate (> 240 minutes). Please also see the tabulated and graphic data. 1. Obstructive Sleep Apnea-Hypopnea (ICD-10 G47.33), moderate, with an AHI of 20.0/hr and catherine SaO2 of 86%. During the study, the patient had 57 apneas (57 obstructive, 0 central, 0 mixed) and 26 hypopneas. The longest episode lasted 79.0 seconds. The respiratory events occurred more frequently during supine sleep (supine AHI was 62.1 and non-supine, 9.59). 2. Hypoxemia (ICD-10 R09.02), mild, with the lowest oxygen saturation of 86 % and 10.1 minutes with SaO2 under 90%. Baseline oxygen saturation was normal (Average oxygen saturation was 92%). Allergies and Home Medications Home medication list reviewed: Yes (no changes) Review of Systems Review of systems same as previous: Yes (no changes) Physical Exam Heart Rate: 88 O2 Saturation: 97 Height: 5 ft 2 in Weight: 183 lb Body Mass Index: 33.5 BMI Classification: Obese Impression and Plan 1. Obstructive Sleep Apnea-Hypopnea Syndrome, moderate, with lowest oxygen saturation of 86%. Positive pressure therapy could benefit hypertension, anxiety, depression and gastric reflux. Patient had previous experience with a CPAP machine. She states she could not wear it without having a panic attack. She stopped after a month or 2 because she could not wear the mask on her face. I reviewed with patient other modalities including an oral mandibular appliance with positional therapy, surgery and the implantable Inspire therapy device. Patient decided to explore option of implantable Inspire therapy device. I will write referral for patient evaluation with Dr. Johnie Bergeron. Because the apnea is more severe supine, I instructed to avoid sleeping supine using pillow positioning until able to start CPAP use. I also advised patient to continue to try to lose weight to help reduce her apneas. She voiced understanding and agreement with plan. 2. Hypoxemia, mild, with the lowest oxygen saturation of 86 % and 10.1 minutes with SaO2 under 90%. Her baseline oxygen saturation was normal with an average oxygen saturation of 92%. * Referral for evaluation by Dr. Johnie Bergeron for Inspire * Attempt to lose weight. * Avoid supine sleep * The patient is again cautioned about driving until sleepiness completely resolves. * Return as needed after her evaluation is completed. Counseling Topics: Weight loss health impact Visit Type: In Office Time Spent with Patient (minutes): 27 Provider Statement: I spent 100% of the Face to Face Visit with the patient with greater than 50% spent counseling the patient and coordination of care.
== END 2021-04-25 09:40 | disposition home or self-care (01) ==
LOC: SC 09:39
PROVIDERS: ATTEND Nurse Practitioner Family
DX: G47.33 Obstructive sleep apnea (adult) (pediatric) (principal)
CPT/HCPCS: 99213; G0463; 99212

== ENCOUNTER 2022-05-14 09:41 | Outpatient (CLI) | payer MEDICARE, OTHER ==
--- NOTE | 2022-05-14 14:36 | DEXA Report ---
PROCEDURE: Dexa Spine and/or Hip INDICATIONS: POST MENOPAUSAL TECHNIQUE: Dual energy x-ray absorptiometry (DXA) was performed on a Eons System. Regions measur ed are the AP Spine, femoral neck, and if needed forearm. COMPARISON: DEXA 07/09/2016. FINDINGS: Lumbar Spine: L1-L3 Bone Mineral Density 1.160 g/cm/cm, T score -0.1, there is significant interval increase in bone min eral density compared to 2016. Lumbar spine fixation hardware. Left Hip: Bone Mineral Density 0.788 g/cm/cm, T score -1.7, osteopenia. -9.5% change. There is significant int erval decrease in bone mineral density compared to 2016. Left Femoral Neck: Bone Mineral Density 0.818 g/cm/cm, T score -1.6, osteopenia (T score greater or equal to -1.0: NORMAL) (T score from -1.1 to -2.4: OSTEOPENIA) (T score less than or equal to -2.5 to: OSTEOPOROSIS) Impression: Left hip osteopenia. Patients with diagnosis of osteoporosis or osteopenia should have regular bone mineral density assess ment. For those eligible for Medicare, routine testing is allowed once every 2 years. Testing frequ ency can be increased for patients who have rapidly progressing disease or for those who are receivin g medical therapy to restore bone mass. Reviewed by: Ezio Barger MD on 05/14/2022 2:34 PM PDT Approved by: Ezio Barger MD on 05/14/2022 2:34 PM PDT Station ID: [id number]
== END 2022-05-14 09:42 | disposition home or self-care (01) ==
LOC: DI 09:41
PROVIDERS: ATTEND Internal Medicine
DX: Z13.820 Encounter for screening for osteoporosis (principal); M85.89 Other specified disorders of bone density and structure, multiple sites; Z78.0 Asymptomatic menopausal state

== ENCOUNTER 2023-02-19 07:05 | Outpatient (CLI) | payer MEDICARE, OTHER ==
[2023-02-19 14:56] LABS: BASOPHILS % (AUTO) 0.4 %; EOSINOPHILS # (AUTO) 0.5 10^3/uL (0.0-0.7); EOSINOPHILS % (AUTO) 6.6 %; HCT - HEMATOCRIT 35.6 % (37.0-47.0); HGB - HEMOGLOBIN 11.2 g/dL (12.0-16.0); LYMPHOCYTES # (AUTO) 2.8 10^3/uL (1.5-3.5); LYMPHOCYTES % (AUTO) 37.6 %; MEAN CORPUSCULAR HEMOGLOBIN 29.5 pg (27.0-31.0); MEAN CORPUSCULAR HGB CONC 31.5 g/dL (32.0-36.0); MEAN CORPUSCULAR VOLUME 93.7 fL (81.0-99.0); MEAN PLATELET VOLUME 10.4 fL (7.9-10.8); MONOCYTES # (AUTO) 0.6 10^3/uL (0.0-1.0); MONOCYTES % (AUTO) 8.6 %; NEUTROPHILS # (AUTO) 3.5 10^3/uL (1.5-6.6); NEUTROPHILS % (AUTO) 46.7 %; PLT - PLATELET COUNT 242 10^3/uL (130-450); RED CELL DISTRIBUTION WIDTH 12.6 % (12.0-15.0); WHITE BLOOD COUNT 7.5 x10^3/uL (4.8-10.8)
[2023-02-19 15:39] LABS: ALBUMIN 4.3 g/dL (3.2-5.5); ALBUMIN/GLOBULIN RATIO 1.5 (1.0-2.2); ALKALINE PHOSPHATASE 64 IU/L (42-121); ALT ALANINE AMINOTRANSFERASE 11 IU/L (10-60); AST ASPARTATE AMINOTRANSFERASE 12 IU/L (10-42); BILIRUBIN,TOTAL 0.4 mg/dL (0.2-1.0); BUN - BLOOD UREA NITROGEN 23 mg/dL (6-20); CALCIUM 9.7 mg/dL (8.5-10.3); CARBON DIOXIDE - CO2 28 mmol/L (21-32); CHLORIDE 104 mmol/L (101-111); CHOL/HDL RATIO 3.2 (<4.4); CHOLESTEROL 179 mg/dL; CREATININE 1.2 mg/dL (0.6-1.3); GFR - MDRD 44 (>89); GLUCOSE 108 mg/dL (74-104); HDL CHOLESTEROL 56 mg/dL; LDL CHOLESTEROL,CALCULATED 96 mg/dL; LDL/HDL RATIO 1.7 (<4.4); POTASSIUM 4.2 mmol/L (3.5-4.5); SODIUM 138 mmol/L (135-145); TOTAL PROTEIN 7.2 g/dL (6.4-8.9); TRIGLYCERIDES 133 mg/dL (48-352); VLDL CHOLESTEROL 27 mg/dL
[2023-02-19 15:43] LABS: LITHIUM 0.25 mmol/L
[2023-02-19 15:45] LABS: CREATININE,URINE 115.4 mg/dL
[2023-02-19 15:55] LABS: MICROALBUMIN,URINE < 0.7 mg/dL
[2023-02-19 21:34] LABS: ESTIMATED AVERAGE GLUCOSE 134 mg/dL (70-100); HEMOGLOBIN A1c% 6.3 % (4.27-6.07)
== END 2023-02-19 07:06 | disposition home or self-care (01) ==
LOC: LAB.S 07:05
PROVIDERS: ATTEND Internal Medicine
DX: Z00.00 Encounter for general adult medical examination without abnormal findings (principal); I12.9 Hypertensive chronic kidney disease with stage 1 through stage 4 chronic kidney disease, or unspecified chronic kidney disease; E11.22 Type 2 diabetes mellitus with diabetic chronic kidney disease; N18.9 Chronic kidney disease, unspecified; J44.9 Chronic obstructive pulmonary disease, unspecified; F32.A Depression, unspecified; K21.9 Gastro-esophageal reflux disease without esophagitis; M25.559 Pain in unspecified hip; E78.5 Hyperlipidemia, unspecified; M54.50 Low back pain, unspecified; J45.909 Unspecified asthma, uncomplicated; C80.1 Malignant (primary) neoplasm, unspecified; Z79.899 Other long term (current) drug therapy
CPT/HCPCS: 36415; 80053; 80061; 80178; 82043; 82570; 83036; 83721; 84443; 85025

== ENCOUNTER 2023-03-08 22:49 | Outpatient (CLI) | payer MEDICARE, OTHER | END 2023-03-08 23:59 | disposition critical access hospital (66) | LOC: EMS 22:49 | DX: M54.50 Low back pain, unspecified (principal); G89.29 Other chronic pain | CPT/HCPCS: A0425; A0427 ==

== ENCOUNTER 2023-06-18 19:18 | Outpatient (CLI) | payer MEDICARE, OTHER | END 2023-06-18 19:19 | disposition critical access hospital (66) | LOC: EMS 19:18 | DX: M25.561 Pain in right knee (principal); Z74.09 Other reduced mobility | CPT/HCPCS: A0425; A0427 ==

== ENCOUNTER 2023-06-18 19:45 | Emergency (ER) | payer MEDICARE, OTHER ==
[2023-06-18] MEDS ORDERED: fentaNYL 100 MCG/2 ML VIAL IVP STA (20:12)
--- NOTE | 2023-06-18 21:29 | XRAY Report ---
PROCEDURE: Knee 4 View RT INDICATIONS: fall/pain TECHNIQUE: 3 views of the knee(s) were acquired. COMPARISON: None. FINDINGS: Bones: No fractures or dislocations. No suspicious bony lesions. Soft tissues: Minimal knee joint effusion. No suspicious soft tissue calcifications or masses. IMPRESSION: No visualized acute fracture or dislocation. However, occult injury cannot be excluded. Recommend guerrero rt interval imaging follow-up in 7-10 days as clinically indicated for additional evaluation. Reviewed by: Emmy Whitman MD on 06/18/2023 9:28 PM PST Approved by: Emmy Whitman MD on 06/18/2023 9:28 PM PST Station ID: [id number]
[2023-06-18] MEDS ORDERED: HYDROcod/ACETAM 5/325 MG TABLET PO STA (21:36)
--- NOTE | 2023-06-18 21:40 | ED Physician Documentation ---
PD HPI LOWER EXT INJURY - Stated complaint Stated Complaint: KNEE PX - Chief complaint Chief Complaint: Trauma Ext - History obtained from History obtained from: Patient - Additional information Additional information: Patient is a 77-year-old female presenting for evaluation of right knee pain that has been worsening for the past 4 weeks. Patient states that she fell 4 weeks ago due to tripping and landed onto both knees. Since that time she has been having some discomfort in the right knee but managing it with lidocaine patch. Tonight she was letting her dogs out outside and turned in her direction and felt a pop in her knee and then has not been able to bear weight. She denies hitting her head or having any head injury. She denies a fall tonight. She has recently been using a muscle relaxer for pain related to her left hip which has been improving. She does not take a blood thinner. Denies any current pain elsewhere. She did receive 50 mics of fentanyl by EMS. 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 SAFETY: Hysterectomy - Present Medications Home Medications: Ambulatory Orders Medication Instructions Recorded Confirmed Bupropion HCl [Wellbutrin] 300 mg PO DAILY 01/01/13 08/14/17 Omeprazole [Prilosec] 20 mg PO BID 01/01/13 08/14/17 Albuterol Sulfate [Albuterol 1 inh INH DAILY 09/06/14 08/14/17 Sulfate Hfa] Pravastatin Sodium 40 mg PO DAILY 09/06/14 08/14/17 LORazepam [Lorazepam] 1 mg PO DAILY PRN 06/10/15 08/14/17 Losartan [Cozaar] 25 mg PO DAILY 05/29/16 08/14/17 [place] 0.5 mg PO BID 05/30/16 08/14/17 Ipratropium/Albuterol [Duoneb] 1 ea INH TID PRN 08/14/17 08/14/17 Azithromycin [Zithromax] 1 tab PO DAILY #6 tablet 02/18/19 Meclizine HCl 25 mg PO Q6H PRN #20 tab.chew 09/15/18 Ondansetron Odt [Zofran] 4 mg TL Q6H PRN #10 tablet 09/15/18 Hydrocodone/Acetaminophen 1 each PO Q6H PRN #15 tablet 04/01/19 [Hydrocodon-Acetaminophen 5-325] Tizanidine HCl 4 mg PO TID PRN #25 capsule 04/01/19 dexAMETHasone [Decadron] 4 mg PO DAILY #7 tablet 04/01/19 HYDROcod/ACETAM 5/325 [[place] 5/325] 1 - 2 tablet PO Q6H PRN #14 tablet 03/09/23 Lidocaine Patch 5% [Lidoderm Patch] 1 each TOP DAILY #10 patch 03/09/23 dexAMETHasone [Decadron] 8 mg PO DAILY #10 tablet 03/09/23 methocarbamoL [Robaxin] 500 mg PO Q6H #20 tablet 03/09/23 - Allergies Allergies/Adverse Reactions: Allergies Allergy/AdvReac Type Severity Reaction Status Date / Time methylprednisolone Allergy Hallucinati Verified 06/18/23 20:03 ons morphine Allergy Respiratory Verified 06/18/23 20:03 tizanidine Allergy Respiratory Verified 06/18/23 20:03 aspirin AdvReac Unknown Respiratory Verified 06/18/23 20:03 codeine [Codeine] AdvReac Unknown Headache Verified 06/18/23 20:03 monosodium glutamate AdvReac Unknown Unknown Verified 06/18/23 20:03 Penicillins AdvReac Unknown Rash Verified 06/18/23 20:03 - Social History Does the pt smoke?: Yes Smoking Status: Current every day smoker Does the pt drink ETOH?: No Does the pt have substance abuse?: No - Immunizations Immunizations are current?: Yes - POLST Patient has POLST: No PD ED PE NORMAL - General General: Alert and oriented X 3, No acute distress, Well developed/nourished - HEENT HEENT: Atraumatic, Moist mucous membranes, Pharynx benign - Neck Neck: Supple, no meningeal sign - Cardiac Cardiac: RRR, Strong equal pulses - Respiratory Respiratory: No respiratory distress, Clear bilaterally - Derm Derm: Warm and dry - Extremities Extremities: No deformity, No tenderness to palpate, No edema, No calf tenderness / cord, Other (Pain on range of motion of her right knee, No tenderness over femur or distally past the knee, pulses intact; No overlying erythema or warmth) Results - Vitals Vitals: Vital Signs - 24 hr 06/18/23 06/18/23 06/19/23 19:59 20:02 00:02 Temperature 36.6 C Heart Rate 80 78 71 Respiratory 16 20 16 Rate Blood Pressure 167/91 H 156/69 H 136/77 H O2 Saturation 98 96 98 06/19/23 06/19/23 02:00 05:10 Temperature Heart Rate 96 99 Respiratory 19 20 Rate Blood Pressure 148/58 H 153/68 H O2 Saturation 95 97 Oxygen O2 Source Room air PD Medical Decision Making - ED course Complexity details: reviewed results, re-evaluated patient, d/w patient, other (Significant delays in CT scans on this shift) ED course: 648 - Patient sitting on the edge of the bed with her legs dangling off. States her pain feels slightly better this morning but she is still having a lot of pain with bearing weight. There has been significant delays in obtaining CT scans overnight and her CT scan is still pending. Plan to obtain CT scan to verify that there is no fracture and then social work consult. Patient will be signed out at shift change. Departure - Departure Forms: PCP List
[2023-06-19] MEDS ORDERED: CALCIUM CARBONATE CHEW 500 MG TABLET PO STA (02:47)
[2023-06-19] MEDS ORDERED: HYDROcod/ACETAM 5/325 MG TABLET PO PRN (04:40)
[2023-06-19] MEDS ORDERED: LIDOCAINE PATCH 5% TOP STA (04:40)
--- NOTE | 2023-06-19 08:17 | CT Report ---
PROCEDURE: LOWER EXTREMITY WO - RT INDICATIONS: intractable r knee pain TECHNIQUE: Noncontrast 100 and axial sections of the right knee were obtained with coronal and sagittal reformat s. For radiation dose reduction, the following was used: automated exposure control, adjustment of mA and/or kV according to patient size. COMPARISON: Right knee radiograph dated 06/18/2023. FINDINGS: Image quality: Excellent. Bones: Alignment of right knee is anatomic. No acute fracture or dislocation is seen. There is mild to moderate tricompartmental osteoarthritis more notably in medial femoral tibial compartment. No sig nificant patellar subluxation. No suspicious bony lesions. Soft tissues: Moderate joint effusion is seen, no calcified intra-articular loose bodies. No abnorma l soft tissue calcifications. No full-thickness quadriceps tendon or patellar tendon rupture. No full -thickness anterior or posterior cruciate ligament rupture. Impression: 1. Moderate tricompartmental osteoarthritis. No acute right knee fracture or dislocation. 2. Moderate joint effusion. No abnormal soft tissue calcifications or calcified intra-articular loose bodies. No full-thickness tendon or ligament rupture. Reviewed by: Zachary Mckoy MD on 06/19/2023 8:16 AM PST Approved by: Zachary Mckoy MD on 06/19/2023 8:16 AM PST Station ID: [id number]
--- NOTE | 2023-06-19 08:58 | ED Physician Documentation ---
ED Addendum - Addendum Addendum: 06/19/23 08:[address] the [address] scan. There is some mild to moderate effusion. No fractures seen. No full-thickness ligament injuries. Significant arthritis noted. We can place the patient in a hinged knee brace which may help stabilize the knee and feel little bit more comfortable. Some bending is reasonable given no fractures or obvious tears. Will have social work assessed the patient for ability. We can have OT and PT evaluate as well.
[2023-06-19] MEDS ORDERED: NAPROXEN 250 MG TABLET PO SCH (11:00)
[2023-06-19] MEDS ORDERED: buPROPion XL 150 MG TABLET PO SCH (11:00)
[2023-06-19] MEDS ORDERED: LORazepam 0.5 MG TABLET PO STA (12:08)
[2023-06-19] MEDS ORDERED: HYDROcod/ACETAM 5/325 MG TABLET PO STA (12:10)
[2023-06-19 13:35] VITALS: O2SAT 100
[2023-06-19 13:54] VITALS: BP 174/89
[2023-06-19] MEDS ORDERED: methocarbamoL 500 MG TABLET PO SCH (14:00)
[2023-06-19] MEDS ORDERED: BACLOFEN 10 MG TABLET PO SCH (14:00)
== END 2023-06-19 14:57 | disposition home or self-care (01) ==
LOC: EDUNIT# → ED 19:45
DX: M17.11 Unilateral primary osteoarthritis, right knee (principal); F41.9 Anxiety disorder, unspecified; F17.200 Nicotine dependence, unspecified, uncomplicated; Z76.4 Other boarder to healthcare facility
CPT/HCPCS: 73564; 73700; 96374; 97162; 97166; 97530; 99283; 99284; A9270

== ENCOUNTER 2023-07-09 12:45 | Outpatient (CLI) | payer MEDICARE, OTHER ==
--- NOTE | 2023-07-09 19:30 | XRAY Report ---
PROCEDURE: Knee 4 View RT INDICATIONS: RIGHT KNEE PAIN TECHNIQUE: 3 views of the knee(s) were acquired. COMPARISON: Right knee radiograph on June 18, 2023 FINDINGS: Bones: No fractures or dislocations. Normal alignment. Joint spaces are maintained. No suspicious b johanny lesions. Soft tissues: Small knee joint effusion, slightly increased compared to prior. No suspicious soft ti ssue calcifications or masses. Small enthesophyte at the distal quadriceps insertion. IMPRESSION: No acute bony abnormality. Reviewed by: Thuy Laughlin MD on 07/09/2023 7:29 PM PST Approved by: Thuy Laughlin MD on 07/09/2023 7:29 PM PST Station ID: [id number]
== END 2023-07-09 23:59 | disposition home or self-care (01) ==
LOC: DI.WOS 12:45
PROVIDERS: ATTEND Physician Assistant Surgical
DX: M17.11 Unilateral primary osteoarthritis, right knee (principal)

== ENCOUNTER 2023-08-10 12:37 | Outpatient (CLI) | payer MEDICARE, BC ==
--- NOTE | 2023-08-12 09:38 | MRI Report ---
PROCEDURE: KNEE WO - RT INDICATIONS: RIGHT KNEE SPRAIN TECHNIQUE: Noncontrast sagittal PD fast spin echo and T2 fast spin echo with fat saturation, sagittal 3-D gradie nt sequence with fat saturation; coronal T1 spin echo and PD fast spin echo with fat saturation, and axial PD fast spin echo with fat saturation through the knee. COMPARISON: None. FINDINGS: Image quality: Excellent. Menisci: Peripheral displacement of medial meniscus bowing medial collateral ligament is seen. Signal abnormality involving posterior horn of medial meniscus extending to inferior articulating surface i s seen concerning for subtle oblique tear. The lateral meniscus is intact. Low to moderate grade part ial-thickness tear involving posterior medial meniscal root ligament is seen. Cruciate ligaments: The anterior and posterior cruciate ligaments appear intact. Medial structures: The medial collateral ligament appears thickened with surrounding soft tissue sandy ma and interstitial T2 hyperintense signal. Visualized portions of the pes anserinus tendons appear n ormal. No abnormal bursal fluid. Lateral structures: The lateral collateral ligament is thickened at its femoral insertion. The long and short heads of the biceps femoris tendon appear intact. The popliteus tendon appears normal. Elvira otibial band appears normal. Anterior structures: There is distal quadriceps tendinosis at its superior patella insertion. The pat cornel tendon is intact. Patellar alignment is normal. No femoral trochlear dysplasia or ventral troch lear prominence. No edema in the infrapatellar fat pad. Bones and cartilage: Marrow edema involving medial portion of proximal tibia extending to medial tibi al plateau is seen with internal subtle linear hypointense signal series 13 image 20 and series 8 [id number] concerning for subcortical fracture. No other area of abnormal marrow signal. Mild to moderate tricompartmental osteoarthritis and chondromalacia is seen more notably in medial femoral tibial comp artment. Joint space: There is moderate knee joint fluid. No gross loose bodies. No Morales's cyst. Normal aminta earing synovial plicae are incidentally noted. IMPRESSION: 1. Suggestion of subtle subcortical fracture involving weightbearing portion of medial tibial plateau and medial portion of proximal tibia extending to base of tibial spine. No other area of marrow gely a. 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 Moderate joint effusion, no gross loose bodies. 2. Subtle oblique tear involving posterior horn of medial meniscus extending to inferior articulating surface. The lateral meniscus is intact. Low to moderate grade partial-thickness tear involving post erior medial meniscal root ligament. 3. The cruciate ligaments are intact. 4. Low to moderate grade MCL and proximal LCL sprain. Reviewed by: Zachary Mckoy MD on 08/12/2023 9:37 AM PST Approved by: Zachary Mckoy MD on 08/12/2023 9:37 AM PST Station ID: [id number]
== END 2023-08-10 12:38 | disposition home or self-care (01) ==
LOC: DI 12:37
PROVIDERS: ATTEND Orthopaedic Surgery
DX: S83.411A Sprain of medial collateral ligament of right knee, initial encounter (principal); M17.11 Unilateral primary osteoarthritis, right knee; M94.261 Chondromalacia, right knee; M25.461 Effusion, right knee; S83.241A Other tear of medial meniscus, current injury, right knee, initial encounter; S83.421A Sprain of lateral collateral ligament of right knee, initial encounter